=== PATIENT | male | born 1990 | race Caucasian/White ===

== ENCOUNTER 2019-10-18 11:43 | Emergency (ER) | payer MEDICAID, MEDICARE, OTHER ==
--- NOTE | 2019-10-18 13:27 | ED ---
Abdominal Pain/Male - HPI Summary HPI Summary: Pt. is a 29 y.o male who presents to the ER for abdominal pain since yesterday. Pt. states pain is located to umbilicus. Associated sxs of decreased appetite. Pt. notes he had a fever two days ago. Pt. also notes he has been having blood in his stool x 6 months. Past hx of psychosis. Denies vomiting, urinary sxs, testicle pain. Sxs are moderate in severity. Movement makes sxs worse. Nothing makes sxs better. - History of Current Complaint Chief Complaint: EDAbdPain Stated Complaint: ABDOMINAL PAIN PER PT Time Seen by Provider: 10/18/19 13:14 Hx Obtained From: Patient Pain Intensity: 10 - Allergies/Home Medications Allergies/Adverse Reactions: Allergies Allergy/AdvReac Type Severity Reaction Status Date / Time No Known Allergies Allergy Verified 10/18/19 11:47 Home Medications: Home Medications NK [No Home Medications Reported] 10/18/19 [History Confirmed 10/18/19] PMH/Surg Hx/FS Hx/Imm Hx Previously Healthy: Yes Psychiatric History: Reports: Hx of Violent Episodes Against Others Denies: Hx Eating Disorder - Immunization History Date of Tetanus Vaccine: unknown Infectious Disease History: No Infectious Disease History: Denies: Traveled Outside the [place] in Last 30 Days - Social History Alcohol Use: None Substance Use Type: Reports: Excessive Caffeine Smoking Status (MU): Former Smoker Review of Systems Positive: Fever ENT: Negative Cardiovascular: Negative Respiratory: Negative Positive: Abdominal Pain. Negative: Vomiting, Diarrhea Genitourinary: Negative Neurological: Negative All Other Systems Reviewed And Are Negative: Yes Physical Exam Triage Information Reviewed: Yes Vital Signs On Initial Exam: Initial Vitals Temp Pulse Resp BP Pulse Ox 98.2 F 70 18 145/92 100 10/18/19 11:44 10/18/19 11:44 10/18/19 11:44 10/18/19 11:44 10/18/19 11:44 Vital Signs Reviewed: Yes Appearance: Positive: Well-Appearing - Pt. sitting on side of bed in NAD. Mother present. Skin: Positive: Warm, Dry Head/Face: Positive: Normal Head/Face Inspection Eyes: Positive: Normal, EOMI, SIL Neck: Positive: Supple Respiratory/Lung Sounds: Positive: Clear to Auscultation, Breath Sounds Present Cardiovascular: Positive: Normal, RRR Abdomen Description: Positive: Other: - Abd. is soft with marked tenderness and guarind to RLQ. Neurological: Positive: Normal, CN Intact II-III Psychiatric: Positive: Affect/Mood Appropriate Procedures - Sedation Patient Received Moderate/Deep Sedation with Procedure: No Diagnostics - Vital Signs Vital Signs Temp Pulse Resp BP Pulse Ox 10/18/19 11:44 98.2 F 70 18 145/92 100 - Laboratory Result Diagrams: 10/18/19 13:28 10/18/19 13:28 Lab Statement: Any lab studies that have been ordered have been reviewed, and results considered in the medical decision making process. Abdominal Pain Male Course/Dx - Course Course Of Treatment: Pt. with RLQ pain and recent fever. Afebrile here with stable VS. Pt. also notes he has been having blood in his stool x 6 months. Will obtain labs and ct scan for further evaluation. Pt. declining IV contrast due to potential complications. 1430: Pt. had bowel movement that was loose with large amount of bright red blood. H an H 10.3 and 31. Minimally elevated CRP. 1500: Pt. requesting to leave th ED. Spoke with pt. and he states his abdominal pain has resolved and he does not want any further testing. Called CT and they are able to perform his CT now. Explained to pt. my concern for his significant abd. pain and GI bleed. Pt. expresses understanding but he still wants to leave ED. Pt. has decision making compacity. Discussed lab results and concern for abd. pain and rectal bleeding. Pt. understands the risk of blood loss, ruptured appendix, sepsis, and . Pt. signing out AMA. - Diagnoses Differential Diagnosis/HQI/PQRI: Appendicitis, Constipation, Renal Colic Provider Diagnoses: Abdominal pain, GI bleed, Anemia Discharge ED - Sign-Out/Discharge Documenting (check all that apply): Patient Departure - Discharge Plan Condition: Stable Disposition: AGAINST MEDICAL ADVICE Patient Education Materials: Rectal Bleeding (ED), Abdominal Pain (ED) Referrals: [facility] [Outside] Additional Instructions: You are leaving the ED AGAINST MEDICAL ADVISE Please return to the ER as soon as possible for further testing - Billing Disposition and Condition Condition: STABLE Disposition: Against Medical Advice
[2019-10-18 13:38] LABS: ABS Lymphocytes 0.7 10^3/ul (1.0-4.8); ABS Monocytes 0.4 10^3/ul (0-0.8); ABS Neutrophils 7.5 10^3/ul (1.5-7.7); Eosinophil % 0.3 %; Hematocrit 31 % (42-52); Hemoglobin 10.3 g/dL (14.0-18.0); Lymphocyte % 8.1 %; Mean Corpuscular HGB Conc 34 g/dL (31-36); Mean Corpuscular Hemoglobin 27 pg (27-31); Mean Corpuscular Volume 80 fL (80-94); Mean Platelet Volume 8.4 fL (7.4-10.4); Platelet Count 196 10^3/uL (150-450); Red Blood Count 3.83 10^6 /uL (4.18-5.48); Red Cell Distribution Width 16 % (10-15); White Blood Count 8.7 10^3/uL (3.5-10.8)
[2019-10-18] MEDS: NS 0.9% 1000 ML** 1,000 ML IV ONE (13:39)
[2019-10-18 13:59] LABS: ALT 14 U/L (7-52); AST 18 U/L (13-39); Albumin 4.3 g/dL (3.2-5.2); Albumin/Globulin Ratio 1.4 (1-3); Alkaline Phosphatase 43 U/L (34-104); Anion Gap 8 mmol/L (2-11); BUN/Creatinine Ratio 16.5 (8-20); Blood Urea Nitrogen 13 mg/dL (6-24); C Reactive Protein 17.57 mg/L (<8.01); CO2 Carbon Dioxide 24 mmol/L (22-32); Chloride 102 mmol/L (101-111); EGFR African American 141.3 (>60); EGFR Non-African American 116.8 (>60); Glucose 100 mg/dL (70-100); Potassium 3.9 mmol/L (3.5-5.0); Sodium 134 mmol/L (135-145); Total Protein 7.3 g/dL (6.4-8.9)
[2019-10-18 15:18] VITALS: BP 139/95
== END 2019-10-18 15:30 | disposition left against medical advice (07) ==
LOC: ED 11:43
DX: R10.33 Periumbilical pain (principal); K92.2 Gastrointestinal hemorrhage, unspecified; D64.9 Anemia, unspecified; Z87.891 Personal history of nicotine dependence
CPT/HCPCS: 36415; 80053; 83690; 85025; 86140; 96360; 96361; 99282

== ENCOUNTER 2019-10-18 22:23 | Inpatient (IN) | payer MEDICAID ==
[2019-10-18 23:01] LABS: Urine Appearance Clear; Urine Bilirubin Negative (Negative); Urine Blood Negative (Negative); Urine Color Yellow; Urine Glucose Negative (Negative); Urine Ketones Trace (Negative); Urine Nitrite Negative (Negative); Urine Protein Negative (Negative); Urine Specific Gravity 1.003 (1.010-1.030); Urine Urobilinogen Negative (Negative)
[2019-10-18 23:11] LABS: ABS Lymphocytes 1.2 10^3/ul (1.0-4.8); ABS Monocytes 0.7 10^3/ul (0-0.8); ABS Neutrophils 6.1 10^3/ul (1.5-7.7); Eosinophil % 0.2 %; Hematocrit 32 % (42-52); Hemoglobin 10.9 g/dL (14.0-18.0); Lymphocyte % 15.3 %; Mean Corpuscular HGB Conc 34 g/dL (31-36); Mean Corpuscular Hemoglobin 27 pg (27-31); Mean Corpuscular Volume 80 fL (80-94); Mean Platelet Volume 8.6 fL (7.4-10.4); Nucleated Red Blood Cells % 0.1; Platelet Count 223 10^3/uL (150-450); Red Cell Distribution Width 16 % (10-15); White Blood Count 8.2 10^3/uL (3.5-10.8)
[2019-10-18 23:17] LABS: Urine Benzodiazepine Screen None Detected (None Detect); Urine Opiates Screen None Detected (None Detect)
[2019-10-18 23:25] LABS: ALT 13 U/L (7-52); AST 18 U/L (13-39); Albumin 4.4 g/dL (3.2-5.2); Albumin/Globulin Ratio 1.4 (1-3); Alkaline Phosphatase 43 U/L (34-104); Anion Gap 12 mmol/L (2-11); BUN/Creatinine Ratio 12.8 (8-20); Blood Urea Nitrogen 11 mg/dL (6-24); CO2 Carbon Dioxide 23 mmol/L (22-32); Calcium 9.4 mg/dL (8.6-10.3); Chloride 100 mmol/L (101-111); EGFR African American 128.1 (>60); EGFR Non-African American 105.9 (>60); Globulin 3.2 g/dL (2-4); Glucose 112 mg/dL (70-100); Potassium 3.4 mmol/L (3.5-5.0); Sodium 135 mmol/L (135-145); Total Protein 7.6 g/dL (6.4-8.9)
[2019-10-18 23:59] LABS: Acetaminophen < 15 mcg/mL; Alcohol < 10 mg/dL (<10); Salicylate < 2.50 mg/dL (<30)
--- NOTE | 2019-10-18 23:59 | ED ---
Psychiatric Complaint - HPI Summary HPI Summary: 29-year-old male presents via police for mental health evaluation. He denies any homicidal or suicidal thoughts. He states that family called the police on him. they claim he is unsafe at home. He states that he feels fine. Denies any increased stressors in his life. He states he has had a history of mental health issues but is not having issues recently. He is not currently see a therapist. He is on any medications. - History Of Current Complaint Chief Complaint: EDMentalHealth Time Seen by Provider: 10/18/19 22:49 - Allergies/Home Medications Allergies/Adverse Reactions: Allergies Allergy/AdvReac Type Severity Reaction Status Date / Time No Known Allergies Allergy Verified 10/18/19 22:58 PMH/Surg Hx/FS Hx/Imm Hx Endocrine/Hematology History: Denies: Hx Anticoagulant Therapy Respiratory History: Denies: Hx Asthma Psychiatric History: Reports: Hx of Violent Episodes Against Others Denies: Hx Eating Disorder - Immunization History Date of Tetanus Vaccine: unknown Date of Influenza Vaccine: none Immunizations Up to Date: Yes Infectious Disease History: No Infectious Disease History: Denies: Traveled Outside the [place] in Last 30 Days - Family History Known Family History: Positive: Non-Contributory - Social History Alcohol Use: None Substance Use Type: Reports: None Smoking Status (MU): Former Smoker Review of Systems Negative: Fever Negative: Chest Pain Negative: Shortness Of Breath Negative: Anxious, Depressed All Other Systems Reviewed And Are Negative: Yes Physical Exam Triage Information Reviewed: Yes Vital Signs On Initial Exam: Initial Vitals Temp Pulse Resp BP Pulse Ox 99.5 F 102 20 150/103 99 10/18/19 22:27 10/18/19 22:27 10/18/19 22:27 10/18/19 22:27 10/18/19 22:27 Vital Signs Reviewed: Yes Appearance: Positive: Well-Appearing Skin: Positive: Warm, Dry Head/Face: Positive: Normal Head/Face Inspection Eyes: Positive: Normal, Conjunctiva Clear ENT: Positive: Pharynx normal Respiratory/Lung Sounds: Positive: Clear to Auscultation, Breath Sounds Present Cardiovascular: Positive: Normal, RRR Musculoskeletal: Positive: Normal Neurological: Positive: Normal Procedures - Sedation Patient Received Moderate/Deep Sedation with Procedure: No Diagnostics - Vital Signs Vital Signs Temp Pulse Resp BP Pulse Ox 10/18/19 22:27 99.5 F 102 20 150/103 99 - Laboratory Lab Results: Lab Results 10/18/19 10/18/19 10/18/19 Range/Units 22:45 22:45 23:01 WBC 8.2 (3.5-10.8) 10^3/uL RBC 4.00 L (4.18-5.48) 10^6 /uL Hgb 10.9 L (14.0-18.0) g/dL Hct 32 L (42-52) % MCV 80 (80-94) fL MCH 27 (27-31) pg MCHC 34 (31-36) g/dL RDW 16 H (10-15) % Plt Count 223 (150-450) 10^3/uL MPV 8.6 (7.4-10.4) fL Neut % (Auto) 75.2 % Lymph % (Auto) 15.3 % [place] % (Auto) 8.9 % Eos % (Auto) 0.2 % Baso % (Auto) 0.4 % Absolute Neuts (auto) 6.1 (1.5-7.7) 10^3/ul Absolute Lymphs (auto) 1.2 (1.0-4.8) 10^3/ul Absolute Monos (auto) 0.7 (0-0.8) 10^3/ul Absolute Eos (auto) 0.0 (0-0.6) 10^3/ul Absolute Basos (auto) 0.0 (0-0.2) 10^3/ul Absolute Nucleated RBC 0.0 10^3/ul Nucleated RBC % 0.1 Sodium (135-145) mmol/L Potassium (3.5-5.0) mmol/L Chloride (101-111) mmol/L Carbon Dioxide (22-32) mmol/L Anion Gap (2-11) mmol/L BUN (6-24) mg/dL Creatinine (0.67-1.17) mg/dL Est GFR ( Amer) (>60) Est GFR (Non-Af Amer) (>60) BUN/Creatinine Ratio (8-20) Glucose (70-100) mg/dL Calcium (8.6-10.3) mg/dL Total Bilirubin (0.2-1.0) mg/dL AST (13-39) U/L ALT (7-52) U/L Alkaline Phosphatase (34-104) U/L Total Protein (6.4-8.9) g/dL Albumin (3.2-5.2) g/dL Globulin (2-4) g/dL Albumin/Globulin Ratio (1-3) TSH Urine Color Yellow Urine Appearance Clear Urine pH 6.0 (5-9) Ur Specific [place] 1.003 L (1.010-1.030) Urine Protein Negative (Negative) Urine Ketones Trace A (Negative) Urine Blood Negative (Negative) Urine Nitrate Negative (Negative) Urine Bilirubin Negative (Negative) Urine Urobilinogen Negative (Negative) Ur Leukocyte Esterase Negative (Negative) Urine Glucose Negative (Negative) Salicylates (<30) mg/dL Urine Opiates Screen None detected (None Detect) Acetaminophen mcg/mL Ur Barbiturates Screen None detected (None Detect) Ur Phencyclidine Scrn None detected (None Detect) Ur Amphetamines Screen None detected (None Detect) U Benzodiazepines Scrn None detected (None Detect) Urine Cocaine Screen None detected (None Detect) U Cannabinoids Screen None detected (None Detect) Serum Alcohol (<10) mg/dL 10/18/19 Range/Units 23:01 WBC (3.5-10.8) 10^3/uL RBC (4.18-5.48) 10^6 /uL Hgb (14.0-18.0) g/dL Hct (42-52) % MCV (80-94) fL MCH (27-31) pg MCHC (31-36) g/dL RDW (10-15) % Plt Count (150-450) 10^3/uL MPV (7.4-10.4) fL Neut % (Auto) % Lymph % (Auto) % [place] % (Auto) % Eos % (Auto) % Baso % (Auto) % Absolute Neuts (auto) (1.5-7.7) 10^3/ul Absolute Lymphs (auto) (1.0-4.8) 10^3/ul Absolute Monos (auto) (0-0.8) 10^3/ul Absolute Eos (auto) (0-0.6) 10^3/ul Absolute Basos (auto) (0-0.2) 10^3/ul Absolute Nucleated RBC 10^3/ul Nucleated RBC % Sodium 135 (135-145) mmol/L Potassium 3.4 L (3.5-5.0) mmol/L Chloride 100 L (101-111) mmol/L Carbon Dioxide 23 (22-32) mmol/L Anion Gap 12 H (2-11) mmol/L BUN 11 (6-24) mg/dL Creatinine 0.86 (0.67-1.17) mg/dL Est GFR ( Amer) 128.1 (>60) Est GFR (Non-Af Amer) 105.9 (>60) BUN/Creatinine Ratio 12.8 (8-20) Glucose 112 H (70-100) mg/dL Calcium 9.4 (8.6-10.3) mg/dL Total Bilirubin 0.40 (0.2-1.0) mg/dL AST 18 (13-39) U/L ALT 13 (7-52) U/L Alkaline Phosphatase 43 (34-104) U/L Total Protein 7.6 (6.4-8.9) g/dL Albumin 4.4 (3.2-5.2) g/dL Globulin 3.2 (2-4) g/dL Albumin/Globulin Ratio 1.4 (1-3) TSH Pending Urine Color Urine Appearance Urine pH (5-9) Ur Specific [place] (1.010-1.030) Urine Protein (Negative) Urine Ketones (Negative) Urine Blood (Negative) Urine Nitrate (Negative) Urine Bilirubin (Negative) Urine Urobilinogen (Negative) Ur Leukocyte Esterase (Negative) Urine Glucose (Negative) Salicylates < 2.50 (<30) mg/dL Urine Opiates Screen (None Detect) Acetaminophen < 15 mcg/mL Ur Barbiturates Screen (None Detect) Ur Phencyclidine Scrn (None Detect) Ur Amphetamines Screen (None Detect) U Benzodiazepines Scrn (None Detect) Urine Cocaine Screen (None Detect) U Cannabinoids Screen (None Detect) Serum Alcohol < 10 (<10) mg/dL Result Diagrams: 10/18/19 23:01 10/18/19 23:01 Lab Statement: Any lab studies that have been ordered have been reviewed, and results considered in the medical decision making process. Course/Dx - Course Course Of Treatment: 29-year-old male presents via police for mental health evaluation. He denies any homicidal or suicidal thoughts. He states that family called the police on him. they claim he is unsafe at home. He states that he feels fine. Denies any increased stressors in his life. He states he has had a history of mental health issues but is not having issues recently. He is not currently see a therapist. He is on any medications. On exam has a normal physical exam. Is medically clear for mental health. patient will be signed out to dr yee pending MHE. - Differential Dx/Clinical Impression Differential Diagnosis/HQI/PQRI: Positive: Anxiety, Depression, Suicidal Ideation Provider Diagnosis: Mood disorder Discharge ED - Sign-Out/Discharge Documenting (check all that apply): Sign-Out Patient Signing out patient TO: Anish Yee - Discharge Plan Condition: Stable Referrals: No Primary Care Phys,NOPCP [Primary Care Provider] - - Billing Disposition and Condition Condition: STABLE
[2019-10-19 00:14] LABS: TSH (Thyroid Stimulating Horm) 0.87 mcIU/mL (0.34-5.60)
--- NOTE | 2019-10-19 03:03 | ED ---
Progress - Progress Note Progress Note: Patient signed out from RADHA Gupta, upon shift change 10/19/2019 0230 pending psychiatric evaluation and disposition. Course/Dx - Course Course Of Treatment: Patient signed out from RADHA Gupta, upon shift change 10/19/2019 0230 pending psychiatric evaluation and disposition. Patient will be signed out to Dr. Madera upon shift change 10/19/2019 0700 pending psychiatric evaluation and disposition. - Diagnoses Provider Diagnoses: Mood disorder Discharge ED - Sign-Out/Discharge Documenting (check all that apply): Sign-Out Patient, Receiving Sign-Out Signing out patient TO: Dano Madera Receiving patient FROM: Marleny Garza - Discharge Plan Condition: Stable Disposition: [facility]ATRIC FACILITY-[facility] [place] - Billing Disposition and Condition Condition: STABLE Disposition: Psychiatric Facility [facility] - Attestation Statements Document Initiated by Scribe: Yes Documenting Scribe: Luz Lindsay Provider For Whom Scribe is Documenting (Include Credential): Anish Martinez MD Scribe Attestation: Luz Barnes, scribed for Anish Martinez MD on 10/22/19 at 0631. Scribe Documentation Reviewed: Yes Provider Attestation: The documentation as recorded by the Luz fraga accurately reflects the service I personally performed and the decisions made by Anish diop MD Status of Scribe Document: Viewed
--- NOTE | 2019-10-19 07:23 | ED ---
Progress - Progress Note Progress Note: The patient is a sign-out from Dr. Anish Martinez MD, to Dr. Dano Madera MD , at change of shift at 0700 on 10/19/2019, pending mental health evaluation and disposition. Dr. Gallegos and mental health staff have evaluated the patient and determined that the patient requires admission at this time. Patient agreeable with plan. Course/Dx - Course Course Of Treatment: The patient is a sign-out from Dr. Anish Martinez MD, to Dr. Dano Madera MD, at change of shift at 0700 on 10/19/2019, pending mental health evaluation and disposition. Dr. Gallegos and mental health staff have evaluated the patient and determined that the patient requires admission at this time. Patient agreeable with plan. - Diagnoses Provider Diagnoses: Mood disorder - Provider Notifications Discussed Care Of Patient With: Cecil Gallegos - psychiatry Time Discussed With Above Provider: 10:15 Instructed by Provider To: Other - Dr. Gallegos and mental health staff have evaluated the patient and determined that the patient requires admission at this time Discharge ED - Sign-Out/Discharge Documenting (check all that apply): Patient Departure - Patient admitted by staff., Receiving Sign-Out Receiving patient FROM: Anish Martinez - Patient is a sign-out from Dr. Anish Martinez MD, at 0700 on 10/19/2019, pending MHE and disposition. - Discharge Plan Condition: Stable Disposition: PSYCHIATRIC FACILITY-[facility] [place] - Attestation Statements Document Initiated by Scribe: Yes Documenting Scribe: Sandi Evans Provider For Whom Devon is Documenting (Include Credential): Dr. Dano Madera MD Scribe Attestation: Sandi Barnes, karenibed for Dr. Dano Madera MD on 10/19/19 at 6932. Status of Scribe Document: Ready Procedures - Sedation Patient Received Moderate/Deep Sedation with Procedure: No
--- NOTE | 2019-10-19 08:49 | PN ---
ED Psychiatric Progress Note Date of Service: 10/18/19 Subjective: This is a 29 year-old M who is pending admission to [facility] / transfer to another psychiatric facility / discharge to home / or being observed secondary to mood disorder. Pt. examined in room 21 around 0845. He is sitting in chair watching TV in NAD. Objective: Vitals: Most recent vital signs documented below. General NAD Laboratory: Current laboratory results documented below. Assessment: Mood d/o Plan: Pending MHE. Vital Signs Temp Pulse Resp BP Pulse Ox 97.7 F 91 16 129/84 100 10/19/19 08:27 10/19/19 08:27 10/19/19 08:27 10/19/19 08:27 10/19/19 08:27 Lab Results - Entire Visit 10/18/19 10/18/19 10/18/19 23:01 23:01 22:45 WBC 8.2 RBC 4.00 L Hgb 10.9 L Hct 32 L MCV 80 MCH 27 MCHC 34 RDW 16 H Plt Count 223 MPV 8.6 Neut % (Auto) 75.2 Lymph % (Auto) 15.3 [place] % (Auto) 8.9 Eos % (Auto) 0.2 Baso % (Auto) 0.4 Absolute Neuts (auto) 6.1 Absolute Lymphs (auto) 1.2 Absolute Monos (auto) 0.7 Absolute Eos (auto) 0.0 Absolute Basos (auto) 0.0 Absolute Nucleated RBC 0.0 Nucleated RBC % 0.1 Sodium 135 Potassium 3.4 L Chloride 100 L Carbon Dioxide 23 Anion Gap 12 H BUN 11 Creatinine 0.86 Est GFR ( Amer) 128.1 Est GFR (Non-Af Amer) 105.9 BUN/Creatinine Ratio 12.8 Glucose 112 H Calcium 9.4 Total Bilirubin 0.40 AST 18 ALT 13 Alkaline Phosphatase 43 Total Protein 7.6 Albumin 4.4 Globulin 3.2 Albumin/Globulin Ratio 1.4 TSH 0.87 Urine Color Urine Appearance Urine pH Ur Specific [place] Urine Protein Urine Ketones Urine Blood Urine Nitrate Urine Bilirubin Urine Urobilinogen Ur Leukocyte Esterase Urine Glucose Salicylates < 2.50 Urine Opiates Screen None detected Acetaminophen < 15 Ur Barbiturates Screen None detected Ur Phencyclidine Scrn None detected Ur Amphetamines Screen None detected U Benzodiazepines Scrn None detected Urine Cocaine Screen None detected U Cannabinoids Screen None detected Serum Alcohol < 10 10/18/19 22:45 WBC RBC Hgb Hct MCV MCH MCHC RDW Plt Count MPV Neut % (Auto) Lymph % (Auto) [place] % (Auto) Eos % (Auto) Baso % (Auto) Absolute Neuts (auto) Absolute Lymphs (auto) Absolute Monos (auto) Absolute Eos (auto) Absolute Basos (auto) Absolute Nucleated RBC Nucleated RBC % Sodium Potassium Chloride Carbon Dioxide Anion Gap BUN Creatinine Est GFR ( Amer) Est GFR (Non-Af Amer) BUN/Creatinine Ratio Glucose Calcium Total Bilirubin AST ALT Alkaline Phosphatase Total Protein Albumin Globulin Albumin/Globulin Ratio TSH Urine Color Yellow Urine Appearance Clear Urine pH 6.0 Ur Specific [place] 1.003 L Urine Protein Negative Urine Ketones Trace A Urine Blood Negative Urine Nitrate Negative Urine Bilirubin Negative Urine Urobilinogen Negative Ur Leukocyte Esterase Negative Urine Glucose Negative Salicylates Urine Opiates Screen Acetaminophen Ur Barbiturates Screen Ur Phencyclidine Scrn Ur Amphetamines Screen U Benzodiazepines Scrn Urine Cocaine Screen U Cannabinoids Screen Serum Alcohol
[2019-10-19] MEDS ORDERED: Al Hydrox/Mg Hydrox/Simet LIQ* 30 ML UDC PO PRN (10:27)
[2019-10-20] MEDS ORDERED: ARIPiprazole TAB* 5 MG PO ONE (11:32)
[2019-10-20] MEDS ORDERED: LORazepam TAB(*) 1 MG PO PRN (14:30)
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
[2019-10-20] MEDS: ARIPiprazole TAB* 5 MG PO SCH (21:47)
--- NOTE | 2019-10-21 15:28 | PN ---
Subjective - Subjective Date of Service: 10/21/19 Service Type: 38383 Hosp care 15 min low complexity Subjective: Derrick is seen in weekend coverage for NPP, Annabelle Wood. The patient appears somewhat guarded with flattened affect, however, he is otherwise cooperative. He resumed aripiprazole therapy last night with a 10mg dose and is tolerating this well. He hasn't been interacting much with others but there is no report of violence. He denies SI or HI. I asked about his housing status and he admits not knowing where he will stay once discharged, given the problems that have occurred between himself and his family. Objective - General Observations Appearance: Well Groomed Appears Stated Age: Yes Stature: Short Posture: Slumped Eye Contact: Avoidant Behavior/Activity: WNL - Interaction Observations Attitude Towards Examiner: Cooperative Stated Mood: Dysphoric Affect: Flat Speech Pattern/Tone: Delayed Thought Process: Disorganized Perception: WNL Thought Content: Paranoid Thought Process: Lethality: Paranoid Ideation Hallucination Type: None Delusion Type: Persecution - Cognitive Function Orientation: A&O x 4 Level of Consciousness: Awake Cognition: WNL Estimated Intelligence: Normal Insight: WNL Judgment Within Normal Limits: Yes - Medication Compliance Cooperative with Inpatient Medication Regimen: Yes - Group Participation Participates in Group Activities: No Assessment - Assessment Merits Inpatient Hospitalization: For Immediate Safety, For Stabilization Inpatient DSM-V Dx: F20.9 Clinical Impression: 29 y.o. single, white male with a history of schizophrenia and remote drug abuse presents on 9.41 involuntary status due to paranoid, threatening behavior towards his family in the setting of non-adherence to antipsychotic medications for roughly the past 6 months. BSU: Problem List - Patient Problems (1) Schizophrenia Current Visit: Yes Status: Acute Priority: High Code(s): F20.9 - SCHIZOPHRENIA, UNSPECIFIED SNOMED Code(s): 67133114 Plan - Plan Treatment Plan: Name: DERRICK LOVING Birthdate: 1990 [id number] The patient has been resumed on oral aripiprazole 10mg PO qhs. Continue to treat on the inpatient service. Continued Medication Management: Start Medication Medications: Current Medications Acetaminophen (Tylenol Tab*) 650 mg PO Q4H PRN PRN Reason: for pain; or Temp >101 F Al Hydrox/Mg Hydrox/Simethicone (Maalox Plus*) 30 ml PO Q4H PRN PRN Reason: INDIGESTION Aripiprazole (Abilify Tab*) 10 mg PO BEDTIME TRICE Stop: 10/23/19 20:59 Last Admin: 10/20/19 21:47 Dose: 10 mg Aripiprazole (Abilify Tab*) 15 mg PO BEDTIME TRICE Chlorpromazine HCl (Thorazine Tab*) 100 mg PO Q6H PRN PRN Reason: AGITATION Lorazepam (Ativan Tab(*)) 1 mg PO Q6H PRN PRN Reason: ANXIETY - Discharge Plan Discharge Plan: Inpatient Hospitalization Lab Results - Lab Results Lab Results: 10/18/19 10/18/19 10/18/19 22:45 22:45 23:01 WBC 8.2 RBC 4.00 L Hgb 10.9 L Hct 32 L MCV 80 MCH 27 MCHC 34 RDW 16 H Plt Count 223 MPV 8.6 Neut % (Auto) 75.2 Lymph % (Auto) 15.3 [place] % (Auto) 8.9 Eos % (Auto) 0.2 Baso % (Auto) 0.4 Absolute Neuts (auto) 6.1 Absolute Lymphs (auto) 1.2 Absolute Monos (auto) 0.7 Absolute Eos (auto) 0.0 Absolute Basos (auto) 0.0 Absolute Nucleated RBC 0.0 Nucleated RBC % 0.1 Sodium Potassium Chloride Carbon Dioxide Anion Gap BUN Creatinine Est GFR ( Amer) Est GFR (Non-Af Amer) BUN/Creatinine Ratio Glucose Calcium Total Bilirubin AST ALT Alkaline Phosphatase Total Protein Albumin Globulin Albumin/Globulin Ratio TSH Urine Color Yellow Urine Appearance Clear Urine pH 6.0 Ur Specific [place] 1.003 L Urine Protein Negative Urine Ketones Trace A Urine Blood Negative Urine Nitrate Negative Urine Bilirubin Negative Urine Urobilinogen Negative Ur Leukocyte Esterase Negative Urine Glucose Negative Salicylates Urine Opiates Screen None detected Acetaminophen Ur Barbiturates Screen None detected Ur Phencyclidine Scrn None detected Ur Amphetamines Screen None detected U Benzodiazepines Scrn None detected Urine Cocaine Screen None detected U Cannabinoids Screen None detected Serum Alcohol 10/18/19 23:01 WBC RBC Hgb Hct MCV MCH MCHC RDW Plt Count MPV Neut % (Auto) Lymph % (Auto) [place] % (Auto) Eos % (Auto) Baso % (Auto) Absolute Neuts (auto) Absolute Lymphs (auto) Absolute Monos (auto) Absolute Eos (auto) Absolute Basos (auto) Absolute Nucleated RBC Nucleated RBC % Sodium 135 Potassium 3.4 L Chloride 100 L Carbon Dioxide 23 Anion Gap 12 H BUN 11 Creatinine 0.86 Est GFR ( Amer) 128.1 Est GFR (Non-Af Amer) 105.9 BUN/Creatinine Ratio 12.8 Glucose 112 H Calcium 9.4 Total Bilirubin 0.40 AST 18 ALT 13 Alkaline Phosphatase 43 Total Protein 7.6 Albumin 4.4 Globulin 3.2 Albumin/Globulin Ratio 1.4 TSH 0.87 Urine Color Urine Appearance Urine pH Ur Specific [place] Urine Protein Urine Ketones Urine Blood Urine Nitrate Urine Bilirubin Urine Urobilinogen Ur Leukocyte Esterase Urine Glucose Salicylates < 2.50 Urine Opiates Screen Acetaminophen < 15 Ur Barbiturates Screen Ur Phencyclidine Scrn Ur Amphetamines Screen U Benzodiazepines Scrn Urine Cocaine Screen U Cannabinoids Screen Serum Alcohol < 10
[2019-10-21] MEDS: ARIPiprazole TAB* 5 MG PO SCH (20:49)
[2019-10-22] MEDS: chlorproMAZINE TAB* 100 MG PO PRN (19:17)
[2019-10-22] MEDS: ARIPiprazole TAB* 5 MG PO SCH (19:18)
[2019-10-22] MEDS: Acetaminophen TAB* 325 MG PO PRN (21:35)
--- NOTE | 2019-10-23 13:40 | PN ---
Subjective - Subjective Date of Service: 10/23/19 Service Type: [id number] Hosp care 25 min moderate complexity Subjective: Derrick is found sitting in the milieu along with several peers. They challenge Radha Singleton and I to a [address] [place] [address]. Derrick agrees to come sit at a different table, although he says he doesn't want to. His affect is blunted and he seems to be arrogant or overconfident. He answers questions appropriately and states he likes medication. He says, "I like pills. I'm a drug addict." He says he hadn't been using marijuana or mushrooms recently because he was broke. He continues to believe that his father thinks Derrick is possessed by the devil. Derrick's current interpretation of his own behavior before discharge was that he was trying to scare his father out of that belief. Objective - General Observations Appearance: Disheveled, Unkempt Appears Stated Age: Yes Stature: WNL Posture: Slumped Eye Contact: Intermittent Behavior/Activity: Peculiar - Interaction Observations Attitude Towards Examiner: Cooperative, Defensive, Mistrustful, Dismissive Stated Mood: Dysphoric, Irritable Affect: Restricted Speech Pattern/Tone: Clear Thought Process: Coherent Perception: WNL Thought Content: Paranoid Hallucination Type: Denies, Auditory Delusion Type: Denies, Spiritism - Cognitive Function Orientation: A&O x 4 Level of Consciousness: Awake, Alert, Appropriate Cognition: Impaired Cognition Estimated Intelligence: Normal Insight: Mostly Blames Others for Problems, Difficulty Acknowledging Presence of Psyciatric Problems Judgment Within Normal Limits: No Ability to Make Reasonable Decisions: Serverely Impaired - Medication Compliance Cooperative with Inpatient Medication Regimen: Yes - Group Participation Participates in Group Activities: Partial Assessment - Assessment Merits Inpatient Hospitalization: For Immediate Safety Inpatient DSM-V Dx: F20.9 Clinical Impression: 29 y.o. single, white male with a history of schizophrenia and remote drug abuse presents on 9. involuntary status due to paranoid, threatening behavior towards his family in the setting of non-adherence to antipsychotic medications for roughly the past 6 months. Plan - Plan Treatment Plan: Name: DERRICK LOVING Birthdate: 1990 [id number] The patient has been resumed on oral aripiprazole 10mg PO qhs. Continue to treat on the inpatient service. 10/23/2019 Increase aripiprazole to 15 mg. Continued Medication Management: Different Medication Medications: Current Medications Acetaminophen (Tylenol Tab*) 650 mg PO Q4H PRN PRN Reason: for pain; or Temp >101 F Last Admin: 10/22/19 21:35 Dose: 650 mg Al Hydrox/Mg Hydrox/Simethicone (Maalox Plus*) 30 ml PO Q4H PRN PRN Reason: INDIGESTION Aripiprazole (Abilify Tab*) 10 mg PO BEDTIME TRICE Stop: 10/23/19 20:59 Last Admin: 10/22/19 19:18 Dose: 10 mg Aripiprazole (Abilify Tab*) 15 mg PO BEDTIME TRICE Chlorpromazine HCl (Thorazine Tab*) 100 mg PO Q6H PRN PRN Reason: AGITATION Last Admin: 10/22/19 19:17 Dose: 100 mg Lorazepam (Ativan Tab(*)) 1 mg PO Q6H PRN PRN Reason: ANXIETY Last Admin: 10/22/19 21:35 Dose: 1 mg - Discharge Plan Discharge Plan: Outpatient Follow Up
[2019-10-23] MEDS: chlorproMAZINE TAB* 100 MG PO PRN (17:55)
[2019-10-23] MEDS ORDERED: ARIPiprazole TAB* 15 MG PO SCH (21:00)
[2019-10-24 07:42] LABS: HDL Cholesterol 60.3 mg/dL
--- NOTE | 2019-10-24 16:00 | PN ---
Subjective - Subjective Date of Service: 10/24/19 Service Type: [id number] Hosp care 15 min low complexity Subjective: Robin spoke briefly but politely with me. He expressed interest in seeing his sister vidal, who is nine. Robin seems slightly suspicious of motives, but in the end is delighted to meet with his sister. When we discussed expectations, that they would have to meet in one room for safety, he became mildly agitated and looked around as if to determine who might cause problems. He states he's tolerating the increase in medications well. Objective - General Observations Appearance: Neat Appears Stated Age: Yes Stature: WNL Posture: WNL Eye Contact: Average, Intense Behavior/Activity: Peculiar - Interaction Observations Attitude Towards Examiner: Cooperative Stated Mood: Euthymic Affect: Restricted Speech Pattern/Tone: Clear, Appropriate, Normal Volume Thought Process: Coherent Perception: WNL Thought Content: Paranoid Hallucination Type: Denies Delusion Type: Denies - Cognitive Function Orientation: A&O x 4 Level of Consciousness: Awake, Alert, Appropriate Cognition: Impaired Cognition Estimated Intelligence: Normal Insight: Mostly Blames Others for Problems Judgment Within Normal Limits: No Ability to Make Reasonable Decisions: Serverely Impaired - Medication Compliance Cooperative with Inpatient Medication Regimen: Yes - Group Participation Participates in Group Activities: Partial Assessment - Assessment Merits Inpatient Hospitalization: For Immediate Safety Inpatient DSM-V Dx: F20.9 Clinical Impression: 29 y.o. single, white male with a history of schizophrenia and remote drug abuse presents on involuntary status due to paranoid, threatening behavior towards his family in the setting of non-adherence to antipsychotic medications for roughly the past 6 months. Plan - Plan Treatment Plan: Name: ROBIN LOVING Birthdate: 1990 [id number] The patient has been resumed on oral aripiprazole 10mg PO qhs. Continue to treat on the inpatient service. 10/23/2019 Increase aripiprazole to 15 mg. 10/24/2019 Increase aripiprazole to 20 mg, with possibility of raising to 30 mg. Medications: Current Medications Acetaminophen (Tylenol Tab*) 650 mg PO Q4H PRN PRN Reason: for pain; or Temp >101 F Last Admin: 10/22/19 21:35 Dose: 650 mg Al Hydrox/Mg Hydrox/Simethicone (Maalox Plus*) 30 ml PO Q4H PRN PRN Reason: INDIGESTION Aripiprazole (Abilify Tab*) 20 mg PO BEDTIME TRICE Chlorpromazine HCl (Thorazine Tab*) 100 mg PO Q6H PRN PRN Reason: AGITATION Last Admin: 10/23/19 17:55 Dose: 100 mg Lorazepam (Ativan Tab(*)) 1 mg PO Q6H PRN PRN Reason: ANXIETY Last Admin: 10/22/19 21:35 Dose: 1 mg
[2019-10-24] MEDS: ARIPiprazole TAB* 20 MG PO SCH (20:47)
--- NOTE | 2019-10-25 13:21 | PN ---
Subjective - Subjective Date of Service: 10/25/19 Service Type: [id number] Hosp care 15 min low complexity Subjective: Met with Derrick in the milieu. He reports that he is feeling better today although he is unhappy with the music that has been playing "all day" in the common area. He would prefer to listen to "metal". He is otherwise content for now and looking forward to discharge. Discussed injectable medication, he agrees to the plan to administer the starting dose of two injections and states that he will continue this medication regimen after discharge if he has to. Objective - General Observations Appearance: Neat, Well Groomed Appears Stated Age: Yes Stature: WNL Posture: Tense Eye Contact: Intense Behavior/Activity: Peculiar - Interaction Observations Attitude Towards Examiner: Cooperative, Dismissive Stated Mood: Irritable Affect: Restricted Speech Pattern/Tone: Clear, Normal Volume Thought Process: Coherent Perception: WNL Thought Content: WNL Hallucination Type: None Delusion Type: None - Cognitive Function Orientation: A&O x 4 Level of Consciousness: Awake, Alert, Appropriate Cognition: WNL Estimated Intelligence: Normal Insight: Difficulty Acknowledging Presence of Psyciatric Problems Judgment Within Normal Limits: No Ability to Make Reasonable Decisions: Mildly Impaired - Medication Compliance Cooperative with Inpatient Medication Regimen: Yes - Group Participation Participates in Group Activities: Partial Assessment - Assessment Merits Inpatient Hospitalization: For Discharge Planning Inpatient DSM-V Dx: F20.9 Clinical Impression: 29 y.o. single, white male with a history of schizophrenia and remote drug abuse presents on involuntary status due to paranoid, threatening behavior towards his family in the setting of non-adherence to antipsychotic medications for roughly the past 6 months. Now, however, with several days of antipsychotics (aripriprazole) his mood and relatedness has improved. Plan - Plan Treatment Plan: Name: DERRICK LOVING Birthdate: 1990 [id number] The patient has been resumed on oral aripiprazole 10mg PO qhs. Continue to treat on the inpatient service. 10/23/2019 Increase aripiprazole to 15 mg. 10/24/2019 Increase aripiprazole to 20 mg, with possibility of raising to 30 mg. 10/25/2019 Continue aripriprazole 20mg. Schedule injectable today or tomorrow. Medications: Current Medications Acetaminophen (Tylenol Tab*) 650 mg PO Q4H PRN PRN Reason: for pain; or Temp >101 F Last Admin: 10/22/19 21:35 Dose: 650 mg Al Hydrox/Mg Hydrox/Simethicone (Maalox Plus*) 30 ml PO Q4H PRN PRN Reason: INDIGESTION Aripiprazole (Abilify Tab*) 20 mg PO BEDTIME TRICE Last Admin: 10/24/19 20:47 Dose: 20 mg Chlorpromazine HCl (Thorazine Tab*) 100 mg PO Q6H PRN PRN Reason: AGITATION Last Admin: 10/23/19 17:55 Dose: 100 mg Lorazepam (Ativan Tab(*)) 1 mg PO Q6H PRN PRN Reason: ANXIETY Last Admin: 10/22/19 21:35 Dose: 1 mg
[2019-10-25] MEDS: Acetaminophen TAB* 325 MG PO PRN (19:42)
[2019-10-25] MEDS: ARIPiprazole TAB* 20 MG PO SCH (21:52)
[2019-10-26] MEDS: ARIPiprazole TAB* 20 MG PO SCH (20:35)
[2019-10-27 09:05] VITALS: BP 138/75
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
== END 2019-10-27 16:26 | disposition home or self-care (01) | DRG 750 ==
LOC: ED 22:23 → BSU 10-19 10:27
PROVIDERS: ADMIT Psychiatry & Neurology Psychiatry; ATTEND Psychiatry & Neurology Psychiatry
DX: F25.9 Schizoaffective disorder, unspecified (principal); R45.850 Homicidal ideations; Z91.14 Patient's other noncompliance with medication regimen; Z79.899 Other long term (current) drug therapy; Z87.891 Personal history of nicotine dependence
CPT/HCPCS: 36415; 80053; 80061; 80307; 80320; 80329; 81003; 83036; 84443; 85025; 99222; 99231; 99232; 99238; 99284; A9270-GY; G0480

== ENCOUNTER 2024-01-28 09:50 | Inpatient (IN) ==
[2024-01-28 10:58] LABS: Hematocrit 23.5 % (38-53); Hemoglobin 6.8 g/dL (13.2-16.3); Mean Corpuscular Hemoglobin 16.6 pg (27-33); Mean Corpuscular Hgb Conc 28.8 g/dL (31-36); Mean Corpuscular Volume 57.7 fL (80-97); Mean Platelet Volume 8.4 fL (7.5-11.2); Platelet Count 196 10^3/uL (150-450); Red Blood Count 4.07 10^6/uL (4.06-5.63); Red Cell Distribution Width 18.1 % (12-17); White Blood Count 4.9 10^3/uL (3.6-10.2)
[2024-01-28 11:10] LABS: ALT 8 U/L (7-52); AST 12 U/L (13-39); Acetaminophen < 15 mcg/mL; Albumin/Globulin Ratio 1.8 (1-3); Alcohol, S < 13 mg/dL (<13); Alkaline Phosphatase 39 U/L (35-149); Anion Gap 10 mmol/L (2-16); Blood Urea Nitrogen 13 mg/dL (6-24); CO2 Carbon Dioxide 24 mmol/L (22-32); Calcium 9.6 mg/dL (8.6-10.3); Chloride 106 mmol/L (101-111); Creatinine, Serum 1.05 mg/dL (0.67-1.17); Globulin 2.8 g/dL (2-4); Glucose 93 mg/dL (70-100); Salicylate < 2.50 mg/dL (<30); Sodium 140 mmol/L (135-145); Total Bilirubin 0.5 mg/dL (0.2-1.0); Total Protein 7.8 g/dL (6.4-8.9); eGFR CKD-EPI 96.7 (>60)
[2024-01-28 11:14] LABS: Urine Benzodiazepine Screen None Detected (None Detect); Urine Cannabinoids Screen Presumptive Positive (None Detect); Urine Opiates Screen None Detected (None Detect)
[2024-01-28 11:25] LABS: TSH Ultra Thyroid Stim Horm 1.48 mcIU/mL (0.34-5.60)
[2024-01-28 12:57] LABS: ABS Basophils 0.1 10^3/uL (0.0-0.1); ABS Eosinophils 0.1 10^3/uL (0.0-0.5); ABS Lymphocytes 0.9 10^3/uL (1.0-4.8); ABS Monocytes 0.4 10^3/uL (0.0-1.1); ABS Neutrophils 3.4 10^3/uL (1.5-7.6); ABS Nucleated RBC 0.01 10^3/ul; Anisocytosis 2+; Eosinophil % 2.8 %; Hypochromasia 3+; Microcytosis 3+; Nucleated Red Blood Cells % 0.2 %/100WBC (0.0-0.8)
[2024-01-28] MEDS ORDERED: Al Hydrox/Mg Hydrox/Simet LIQ 30 ML UDC PO PRN (13:32)
[2024-01-28] MEDS ORDERED: OLANZapine 5 mg TAB *ODT PO PRN (13:34)
[2024-01-28] MEDS: Nicotine PATCH 21 MG/24 HR PATCH TRANSDERM SCH (22:14)
[2024-01-29 08:23] LABS: ABS Basophils 0.1 10^3/uL (0.0-0.1); ABS Eosinophils 0.4 10^3/uL (0.0-0.5); ABS Monocytes 0.5 10^3/uL (0.0-1.1); ABS Neutrophils 2.8 10^3/uL (1.5-7.6); Eosinophil % 6.8 %; Hematocrit 25.5 % (38-53); Hemoglobin 7.3 g/dL (13.2-16.3); Lymphocyte % 34.6 %; Mean Corpuscular Hemoglobin 16.5 pg (27-33); Mean Corpuscular Hgb Conc 28.6 g/dL (31-36); Mean Corpuscular Volume 57.7 fL (80-97); Mean Platelet Volume 8.4 fL (7.5-11.2); Nucleated Red Blood Cells % 0.1 %/100WBC (0.0-0.8); Platelet Count 213 10^3/uL (150-450); Red Blood Count 4.42 10^6/uL (4.06-5.63); Red Cell Distribution Width 18.3 % (12-17); White Blood Count 5.7 10^3/uL (3.6-10.2)
[2024-01-29 08:46] LABS: Cholesterol 160 mg/dL; HDL Cholesterol 47.6 mg/dL; LDL Cholesterol 96 mg/dL; Triglycerides 83 mg/dL
[2024-01-29 13:46] LABS: % Iron Saturation 3 % (15-55); .Transferrin 457 mg/dL (203-362); Iron < 20 ug/dL (50-212); Total Iron Binding Capacity 640 mcg/dL (250-450); Unsaturated Iron Binding 620 ug/dL
[2024-01-29 14:08] LABS: Ferritin 1.5 ng/mL (24-336)
[2024-01-29 14:12] LABS: Folate 18.98 ng/mL (5.90-24.80)
[2024-01-29 14:13] LABS: Vitamin B12 459 pg/mL (180-914)
[2024-01-29] MEDS: Ferric Gluconate IV 250 MG in NS 0.9% 250 ml 200 ML IVPB ONE (15:23)
[2024-01-30] MEDS: PEG 3000 GI LAVAGE 1 GALLON PO ONE (18:12)
[2024-01-31] MEDS ORDERED: Naloxone 0.4 mg VIAL 0.4 mg/ml 1 ml VIAL IV PUSH PRN (15:06)
[2024-01-31] MEDS ORDERED: Flumazenil 0.5 mg/5 ml 0.1 MG/ML 5 ml VIAL IV PRN (15:06)
[2024-01-31] MEDS ORDERED: Midazolam 10 mg/10 ml VIAL 1 mg/ml 10 ml VIAL (10 mg) ONE (16:02)
[2024-01-31] MEDS ORDERED: fentaNYL 100 mcg/2 ml 50 MCG/ML VIAL ONE (16:02)
[2024-02-01] MEDS: Nicotine GUM 4MG FRUIT FLAVOR PO PRN (01:12)
[2024-02-02] MEDS: Lidocaine 2% JELLY 6 ML Topical TOPICAL ONE (07:51)
[2024-02-02] MEDS: Midazolam 10 mg/10 ml VIAL 1 mg/ml 10 ml VIAL (10 mg) IV SLOW PU ONE (07:52)
[2024-02-02] MEDS: fentaNYL 100 mcg/2 ml 50 MCG/ML VIAL IV SLOW PU ONE (07:52)
[2024-02-02] MEDS: Ondansetron 4 mg VIAL 2 MG/ML 2 ml VIAL IV ONE (07:53)
[2024-02-03] MEDS: Lactated Ringers 1000 ml BAG 1,000 ML IV ONE (16:16)
[2024-02-08 10:47] VITALS: BP 129/61
== END 2024-02-08 17:00 | disposition home or self-care (01) | DRG 750 ==
LOC: ED 09:50 → EDHOLD 13:32 → BSU 14:10
PROVIDERS: ADMIT Psychiatry & Neurology Psychiatry; ATTEND Psychiatry & Neurology Psychiatry